=== PATIENT | female | born 1995 | race Caucasian/White ===

== ENCOUNTER 2018-06-29 13:44 | Emergency (ER) | payer OTHER, SELFPAY ==
[2018-06-29 13:57] VITALS: BP 124/82; PULSE 95; RESP 16; TEMP 36.2; O2SAT 99; BMI 22.7
--- NOTE | 2018-06-29 14:19 | ED_ITS ---
HPI - Head Injury <BART López - Last Filed: 06/29/18 21:31> General Chief complaint: Head Injury Stated complaint: hit head at work Time Seen by Provider: 06/29/18 14:18 Source: patient Mode of arrival: ambulatory Limitations: no limitations History of Present Illness HPI Narrative: 22-year-old female with history of prior stroke and is a nonsmoker here for complaint of hitting her head yesterday. She states that she was cleaning a large coffee pot when it fell and hit her on her forehead. She denies any loss of consciousness. She states that she was dizzy for approximately 15 min afterwards. She denies any nausea vomiting. She is currently on Plavix due to prior stroke history. She denies any neck pain. She denies any other concerns or complaints. She is ambulatory into the emergency room. She denies any neurological concerns no headache today, Related Data Allergies Allergy/AdvReac Type Severity Reaction Status Date / Time amoxicillin [AMOXICILLIN] Allergy Unknown Verified 06/29/18 13:57 clarithromycin [From BIAXIN] Allergy Unknown Verified 06/29/18 13:57 fentanyl [FENTANYL] Allergy Unknown Verified 06/29/18 13:57 Review of Systems <BART López - Last Filed: 06/29/18 21:31> Constitutional Denies chills, Denies fever(s), Denies lethargy and Denies weakness Eyes Denies change in vision, Denies eye discharge, Denies irritation and Denies loss of vision ENT Ears, Nose, Mouth, and Throat: Denies change in voice, Denies neck pain and Denies sore throat Cardiovascular Denies chest pain, Denies irregular heart rhythm, Denies lightheadedness, Denies palpitations, Denies dyspnea, Denies dyspnea on exertion and Denies orthopnea Respiratory Denies cough, Denies dyspnea, Denies dyspnea on exertion and Denies wheezing Gastrointestinal Gastrointestinal: Denies abdominal pain, Denies change in bowel habits, Denies diarrhea, Denies nausea and Denies vomiting Genitourinary Denies hematuria, Denies flank pain, Denies urinary incontinence and Denies urinary urgency Musculoskeletal Denies neck pain Integumentary/Breasts Denies pruritus, Denies erythema, Denies rash and Denies wounds Neurologic Denies confusion, Denies loss of vision and Denies weakness Comments: minor head injury Psychiatric Denies anxiety, Denies confusion, Denies depression, Denies homicidal ideation and Denies suicidal ideation Endocrine Denies palpitations Hematologic/Lymphatic Denies easy bruising Allergic/Immunologic Denies wheezing Exam <BART López - Last Filed: 06/29/18 21:31> Initial Vital Signs Initial Vital Signs: Vital Signs Temperature 97.2 F L 06/29/18 13:57 Pulse Rate 95 H 06/29/18 13:57 Respiratory Rate 16 06/29/18 13:57 Blood Pressure 124/82 06/29/18 13:57 Pulse Oximetry 99 06/29/18 13:57 Const General: cooperative and well developed Nutritional Appearance: well nourished Orientation: alert, awake, oriented x3 and not confused [facility] Head: normocephalic, No Elizondo's sign, contusion, No hematoma, No laceration, No palpable skull fracture, No raccoon eyes, No scalp tenderness and other ( slight contusion to the right forehead area. No hematomas. No step-offs. No raccoon eyes no Elizondo signs) Ears: external ears normal and TM's normal bilaterally Nose: external nose normal and No nasal discharge Face and sinus: sinuses nontender, face symmetric, no sinus tenderness and No dry mucous membranes Mouth: oral mucosae normal and moist mucous membranes Teeth and gingiva: dentition normal Throat: tonsils normal and uvula midline Eyes Conjunctivae: conjunctivae normal Sclera: sclerae normal Pupils: PERRL EOM: EOM intact bilaterally Resp Effort & Inspection: normal respiratory effort, able to speak in complete sentences, no respiratory distress and no use of accessory muscles Auscultation: clear to auscultation bilaterally, no rales, no rhonchi and no wheezes Cardio Rate: regular rate Rhythm: regular rhythm Heart Sounds: no click, no gallops, no murmurs and no rubs Pulses: normal peripheral pulses Skin General: no rashes or lesions noted, No jaundice and No petechiae Neuro General: alert, oriented x3, gait normal and no focal motor deficits Speech: speech normal <Shai Thrasher DO - Last Filed: 07/01/18 07:09> Initial Vital Signs Initial Vital Signs: Vital Signs Temperature 97.2 F L 06/29/18 13:57 Pulse Rate 95 H 06/29/18 13:57 Respiratory Rate 16 06/29/18 13:57 Blood Pressure 124/82 06/29/18 13:57 Pulse Oximetry 99 06/29/18 13:57 Course <BART López - Last Filed: 06/29/18 21:31> Orders Ordered: ED Orders 06/29/18 14:45 CT head/brain wo con Stat Vital Signs - 8 hr 06/29/18 13:57 06/29/18 15:51 Temperature 97.2 F L Pulse Rate 95 H 91 H Respiratory Rate 16 17 Blood Pressure 124/82 Blood Pressure [Left Arm] 116/76 Pulse Oximetry 99 96 <Shai Thrasher DO - Last Filed: 07/01/18 07:09> Orders Ordered: ED Orders 06/29/18 14:45 CT head/brain wo con Stat Vital Signs - 8 hr 06/29/18 13:57 06/29/18 15:51 Temperature 97.2 F L Pulse Rate 95 H 91 H Respiratory Rate 16 17 Blood Pressure 124/82 Blood Pressure [Left Arm] 116/76 Pulse Oximetry 99 96 MDM - Head Injury <BART López - Last Filed: 06/29/18 21:31> Imaging Data CT scan - head: Radiologist's impression: CT Scan Report Signed Patient: Winnie Carey [facility]#: [id number] : 1995Acct:[id number] Age/Sex: 22 / FDate of Service: 06/29/18 Loc: ED Accession Number: [id number] Procedure: CT head/brain wo con Ordering Provider: Bipin Matos PROCEDURE: CT HEAD/BRAIN WO CON INDICATIONS: head injury with history of taking Plavix TECHNIQUE: Noncontrast 4.5 mm thick angled axial sections acquired from the foramen magnum to the vertex, with coronal and sagittal reformats. For radiation dose reduction, the following was used: automated exposure control, adjustment of mA and/or kV according to patient size. COMPARISON: None. FINDINGS: Image quality: Excellent. CSF spaces: Basal cisterns are patent. No extra-axial fluid collections. Ventricles are normal in size and shape. Brain: Post surgical changes in right anterior middle cranial fossa is seen likely related to prior aneurysm repair.. Possible stent in the region of right distal internal carotid artery is also seen. No midline shift. No intracranial masses or hemorrhage. Quevedo-white matter interface is normal. Skull and face: Calvarium and visualized facial bones are intact, without suspicious lesions. Sinuses: Visualized sinuses and mastoids are clear. IMPRESSION: 1. No CT evidence of acute intracranial pathology. 2. Postsurgical changes in right middle cranial fossa and distal right internal carotid artery likely related patient's known intracranial vascular aneurysm. Dictated by: Donavon Pruitt M.D. on 06/29/2018 at 15:04 Approved by: Donavon Pruitt M.D. on 06/29/2018 at 15:07 [facility] Narrative Medical decision making narrative: with exception of small contusion to the right forehead area normal exam with no neurological deficits. CT of the head was obtained due to being on Plavix and was negative for any acute findings. Signs symptoms presents as minor head injury. [id number] Tylenol Motrin as needed for any discomfort. Follow up with primary care provider. Head injury instructions are provided with warning signs return to the emergency room. For any worsening symptoms return emergency room. Discharge Plan Departure Patient Disposition: Home Clinical Impression: Minor head injury without loss of consciousness Discharge Date/Time: 06/29/18 15:58 Interventions: ED Discharge Assessment Last Done: 06/29/18 15:57 Instructions: DI for Closed Head Injury Activity Restrictions/Additional Instructions: CT of the head was obtained was negative for any acute findings. With the exception of slight amount of bruising to the right forehead area normal exam And normal neurological exam. use [id number] Tylenol as needed for any discomfort. Follow up with her primary care provider. Head injury instructions are provided for signs return to the emergency room. Any worsening symptoms return emergency room. Referrals: Caty Kang DO [Primary Care Provider] - <Shai Thrasher DO - Last Filed: 07/01/18 07:09> Cosign ED Attending Dmitry Attestation: I was immediately available in the department for consultation. Documentation has been reviewed. I agree with assessment and plan.
--- NOTE | 2018-06-29 14:45 | DI.CT.S_ITS ---
PROCEDURE: CT HEAD/BRAIN WO CON INDICATIONS: head injury with history of taking Plavix TECHNIQUE: Noncontrast 4.5 mm thick angled axial sections acquired from the foramen magnum to the vertex, with coronal and sagittal reformats. For radiation dose reduction, the following was used: automated exposure control, adjustment of mA and/or kV according to patient size. COMPARISON: None. FINDINGS: Image quality: Excellent. CSF spaces: Basal cisterns are patent. No extra-axial fluid collections. Ventricles are normal in size and shape. Brain: Post surgical changes in right anterior middle cranial fossa is seen likely related to prior aneurysm repair.. Possible stent in the region of right distal internal carotid artery is also seen. No midline shift. No intracranial masses or hemorrhage. Quevedo-white matter interface is normal. Skull and face: Calvarium and visualized facial bones are intact, without suspicious lesions. Sinuses: Visualized sinuses and mastoids are clear. IMPRESSION: 1. No CT evidence of acute intracranial pathology. 2. Postsurgical changes in right middle cranial fossa and distal right internal carotid artery likely related patient's known intracranial vascular aneurysm. Dictated by: Donavon Pruitt M.D. on 06/29/2018 at 15:04 Approved by: Donavon Pruitt M.D. on 06/29/2018 at 15:07
[2018-06-29 15:51] VITALS: BP 116/76; PULSE 91; RESP 17; O2SAT 96
== END 2018-06-29 15:58 | disposition home or self-care (01) ==
PROVIDERS: Emergency Provider Nurse Practitioner Family; PCP Family Medicine
DX: S09.90XA Unspecified injury of head, initial encounter (principal); W22.8XXA Striking against or struck by other objects, initial encounter; Y99.0 Civilian activity done for income or pay
CPT/HCPCS: 70450; 99283; 99284

== ENCOUNTER 2018-11-20 11:21 | Emergency (ER) | payer OTHER, SELFPAY ==
[2018-11-20] VITALS (15 sets, daily range): BP systolic 94–136; BP diastolic 68–95; PULSE 87–98; RESP 14–30; TEMP 36.2; O2SAT 93–99; BMI 22.2
--- NOTE | 2018-11-20 11:28 | DI.RAD.S_ITS ---
PROCEDURE: XR CHEST 1V INDICATIONS: shortness of breath, chest tightness recent onset TECHNIQUE: One view of the chest was acquired. COMPARISON: None. FINDINGS: Surgical changes and devices: Postoperative changes of the chest are present related to prior median sternotomy.. Lungs and pleura: Lungs are clear. No pleural effusions or pneumothorax. Mediastinum: Mediastinal contours appear normal. Heart size is normal. Bones and chest wall: No suspicious bony lesions. Moderate dextroscoliosis of the thoracic spine is present. Overlying soft tissues appear unremarkable. IMPRESSION: No acute cardiopulmonary process is suspected. Dictated by: Enrico Chambers M.D. on 11/20/2018 at 10:50 Approved by: Enrico Chambers M.D. on 11/20/2018 at 10:51
--- NOTE | 2018-11-20 11:35 | ED_ITS ---
HPI - Chest Pain <Caty Burden RN ANTE PARTUM-BC - Last Filed: 11/20/18 21:45> General Chief Complaint: Chest Pain Stated Complaint: Chest tightness Time Seen by Provider: 11/20/18 11:25 Source: patient and EMS Mode of arrival: EMS Limitations: no limitations History of Present Illness HPI narrative: The patient is a 22-year-old female nonsmoker with history of brain aneurysm coiling earlier this week as well as tricuspid atresia who presents with a chief complaint of chest pressure, 2 episodes last night and 1 episode this morning. She states she is having exertional chest pressure when walking and feels like she cannot catch her breath. Of note she does have a history of TIA and stroke. She is on Plavix and aspirin. She denies any fevers nausea vomiting or diarrhea. She states that her pain is improved by rest. The patient states that she was seen at [facility] for a migraine and neurological symptoms yesterday. She complained of migraine with aura, numbness and tingling which went away. Now she is concerned about residual tingling and numbness on her face. She states she does have a history of stroke and TIA, and this feels similar. The patient has a history of congenital tricuspid atresia, Fontan procedure., ventral septal defect, supraventricular tachycardia. The patient was evaluated 2 days ago at an outside facility, where she was diagnosed with migraine. She states she was having a headache consistent with migraine and did not have a CT scan at that point in time. However she continues with some numbness on her face. Related Data Home Medications Medication Instructions Recorded Confirmed aspirin [Aspir-81] 81 mg PO DAILY 11/20/18 11/20/18 clopidogrel 75 mg PO DAILY 11/20/18 11/20/18 metoprolol succinate 50 mg PO BID 11/20/18 11/20/18 ondansetron 4 mg PO TID PRN 11/20/18 11/20/18 quetiapine 25 mg PO DAILY 11/20/18 11/20/18 riboflavin (vitamin B2) 200 mg PO BID 11/20/18 11/20/18 Allergies Allergy/AdvReac Type Severity Reaction Status Date / Time amoxicillin [AMOXICILLIN] Allergy Unknown Verified 11/20/18 12:03 clarithromycin [From BIAXIN] Allergy Unknown Verified 11/20/18 12:03 fentanyl [FENTANYL] Allergy Unknown Verified 11/20/18 12:03 Review of Systems <JOSE Bryant - Last Filed: 11/20/18 21:45> Review of Systems GENERAL: Denies chills, fatigue, malaise, fever, sweats. HEENT: Denies sinus pain, ear pain, sore throat, difficulty swallowing, dizziness. RESPIRATORY: Denies dyspnea, cough, wheezing, hemoptysis, sputum. CARDIOVASCULAR: See HPI GASTROINTESTINAL: Denies nausea, vomiting, abdominal pain, diarrhea, constipa tion, melena. : Denies dysuria, frequency, incontinence, hematuria, urinary retention. MUSCULOSKELETAL: denies weakness, joint pain, or bony pain SKIN: Denies rash, skin lesions, or other NEUROLOGIC: See HPI PSYCHIATRIC: No concerning psychosocial issues. 12 point review of systems is negative except for those stated above PFSH <JOSE Bryant - Last Filed: 11/20/18 21:45> Medical History (Updated 11/20/18 @ 21:39 by JOSE Bryant) Supraventricular tachycardia (Acute) Tricuspid atresia (Acute) Surgical History (Updated 11/20/18 @ 21:39 by JOSE Bryant) S/P Fontan procedure (Acute) Status post coil embolization of cerebral aneurysm (Acute) Social History Smoking Status: Never smoker Social History Smoking Status: Never smoker Exam <JOSE Bryant - Last Filed: 11/20/18 21:45> Narrative Exam Narrative: GENERAL: This is a well-nourished, well-developed patient appears anxious HEAD: Atraumatic. Normocephalic. No temporal or scalp tenderness. EYES: Pupils equal round and reactive. Extraocular motions intact. No scleral icterus. No injection or drainage. ENT: Nose without bleeding, purulent drainage or septal hematoma. Throat without erythema, tonsillar hypertrophy or exudate. Uvula midline. Airway patent. NECK: Trachea midline. No JVD or lymphadenopathy. Supple, nontender, no meningeal signs. CARDIOVASCULAR: Regular rate and rhythm RESPIRATORY: Clear to auscultation. Breath sounds equal bilaterally. No wheezes, rales, or rhonchi. No cough. No increased respiratory effort. GASTROINTESTINAL: Abdomen soft, non-tender, nondistended. No hepato- splenomegaly, or palpable masses. No guarding. EXTREMITIES: No clubbing, cyanosis, or edema. No joint tenderness, effusion, or edema noted. BACK: Nontender without deformity or crepitance. No flank tenderness. NEURO: AOx3. Strength is equal upper and lower extremities bilaterally. Stable gait. No slurred speech. Cranial nerves grossly intact. SKIN: No rash or erythema. Initial Vital Signs Initial Vital Signs: Vital Signs Temperature 97.2 F L 11/20/18 11:25 Pulse Rate 91 H 11/20/18 11:25 Respiratory Rate 18 11/20/18 11:25 Blood Pressure 135/92 H 11/20/18 11:25 Pulse Oximetry 97 11/20/18 11:25 <Sue Duke MD - Last Filed: 11/21/18 12:05> Initial Vital Signs Initial Vital Signs: Vital Signs Temperature 97.2 F L 11/20/18 11:25 Pulse Rate 91 H 11/20/18 11:25 Respiratory Rate 18 11/20/18 11:25 Blood Pressure 135/92 H 11/20/18 11:25 Pulse Oximetry 97 11/20/18 11:25 Course <JOSE Bryant - Last Filed: 11/20/18 21:45> Orders Ordered: Discontinued Medications Acetaminophen (Tylenol) 975 mg PO NOW ONE Stop: 11/20/18 13:09 Last Admin: 11/20/18 13:17 Dose: 975 mg Ketorolac Tromethamine (Toradol) 15 mg IV NOW ONE Stop: 11/20/18 13:09 Last Admin: 11/20/18 13:17 Dose: 15 mg Vital Signs - 8 hr 11/20/18 15:00 11/20/18 15:30 11/20/18 16:00 Pulse Rate 88 93 H 91 H Respiratory Rate 17 23 19 Blood Pressure [Right Arm] 108/76 97/82 108/68 Pulse Oximetry 98 97 97 11/20/18 17:30 11/20/18 18:00 11/20/18 18:30 Pulse Rate 94 H 92 H 92 H Respiratory Rate 21 21 19 Blood Pressure [Right Arm] 102/72 116/76 122/84 Pulse Oximetry 97 97 95 11/20/18 19:00 11/20/18 19:30 11/20/18 20:00 Pulse Rate 87 89 94 H Respiratory Rate 19 19 30 H Blood Pressure [Right Arm] 122/95 H 122/95 H Pulse Oximetry 96 95 93 <Sue Duke MD - Last Filed: 11/21/18 12:05> Orders Ordered: Discontinued Medications Acetaminophen (Tylenol) 975 mg PO NOW ONE Stop: 11/20/18 13:09 Last Admin: 11/20/18 13:17 Dose: 975 mg Ketorolac Tromethamine (Toradol) 15 mg IV NOW ONE Stop: 11/20/18 13:09 Last Admin: 11/20/18 13:17 Dose: 15 mg Vital Signs - 8 hr 11/20/18 15:00 11/20/18 15:30 11/20/18 16:00 Pulse Rate 88 93 H 91 H Respiratory Rate 17 23 19 Blood Pressure [Right Arm] 108/76 97/82 108/68 Pulse Oximetry 98 97 97 11/20/18 17:30 11/20/18 18:00 11/20/18 18:30 Pulse Rate 94 H 92 H 92 H Respiratory Rate 21 21 19 Blood Pressure [Right Arm] 102/72 116/76 122/84 Pulse Oximetry 97 97 95 11/20/18 19:00 11/20/18 19:30 11/20/18 20:00 Pulse Rate 87 89 94 H Respiratory Rate 19 19 30 H Blood Pressure [Right Arm] 122/95 H 122/95 H Pulse Oximetry 96 95 93 MDM - Chest Pain <JOSE Bryant - Last Filed: 11/20/18 21:45> Lab Data Result diagrams: 11/20/18 11:15 11/20/18 11:15 Lab Results 11/20/18 11/20/18 11/20/18 Range/Units 11:15 11:15 11:15 WBC 11.1 H (4.5-11.0) X10^3/uL RBC 4.95 (4.0-5.2) X10^6/uL Hgb 15.3 (12.0-16.0) g/dL Hct 45.0 (36-46) % MCV 90.8 (80-100) fL MCH 30.8 (26-34) PG MCHC 34.0 (30-36) % RDW 12.8 (11.6-14.8) % Plt Count 376 (150-400) X10^3/uL Neut % (Auto) 46.9 L (50-75) % Lymph % (Auto) 39.5 (25-40) % [place] % (Auto) 9.5 (3-14) % Eos % (Auto) 3.5 (2-4) % Baso % (Auto) 0.6 (0-2) % Neut # (Auto) 5200 (8357-6710) /uL Lymph # (Auto) 4400 (8005-0186) /uL [place] # (Auto) 1100 H (0-900) /uL Eos # (Auto) 400 (0-450) /uL Baso # (Auto) 100 (0-100) /uL PT 12.3 (10.1-12.7) SECONDS INR 1.1 (0.9-1.3) APTT 33 (26.4-36.2) SECONDS D-Dimer (<230) ng/mL Sodium 141 (137-145) mmol/L Potassium 4.1 (3.4-5.1) mmol/L Chloride 105 (98-107) mmol/L Carbon Dioxide 21 L (22-32) mmol/L BUN 15 (7-17) mg/dL Creatinine 0.70 (0.52-1.04) mg/dL Estimated GFR > 60.0 (>60) mL/min BUN/Creatinine Ratio 21.4 (6-22) Glucose 85 (70-100) mg/dL Calcium 10.2 (8.4-10.2) mg/dL Total Bilirubin 0.6 (0.2-1.3) mg/dL AST 54 H (14-36) IU/L ALT 67 H (9-52) IU/L Alkaline Phosphatase 75 (38-126) U/L Total Creatine Kinase 26 L (30-135) U/L CK-MB (CK-2) TNP CK-MB (CK-2) Rel Index TNP Troponin I < 0.012 (0.01-0.034) ng/mL B-Natriuretic Peptide < 100 (<100) Total Protein 9.0 H (6.3-8.2) g/dL Albumin 4.9 (3.5-5.0) g/dL Globulin 4.1 (1.7-4.1) g/dL Albumin/Globulin Ratio 1.2 (1.0-2.8) Urine RBC (0-5/HPF) Urine WBC (0-5/HPF) Ur Squamous Epith Cells (0-5/HPF) Urine Bacteria (None) Ur Culture Indicated? 11/20/18 11/20/18 11/20/18 Range/Units 11:15 12:08 14:00 WBC (4.5-11.0) X10^3/uL RBC (4.0-5.2) X10^6/uL Hgb (12.0-16.0) g/dL Hct (36-46) % MCV (80-100) fL MCH (26-34) PG MCHC (30-36) % RDW (11.6-14.8) % Plt Count (150-400) X10^3/uL Neut % (Auto) (50-75) % Lymph % (Auto) (25-40) % [place] % (Auto) (3-14) % Eos % (Auto) (2-4) % Baso % (Auto) (0-2) % Neut # (Auto) (0120-8933) /uL Lymph # (Auto) (5700-8920) /uL [place] # (Auto) (0-900) /uL Eos # (Auto) (0-450) /uL Baso # (Auto) (0-100) /uL PT (10.1-12.7) SECONDS INR (0.9-1.3) APTT (26.4-36.2) SECONDS D-Dimer 350 H (<230) ng/mL Sodium (137-145) mmol/L Potassium (3.4-5.1) mmol/L Chloride (98-107) mmol/L Carbon Dioxide (22-32) mmol/L BUN (7-17) mg/dL Creatinine (0.52-1.04) mg/dL Estimated GFR (>60) mL/min BUN/Creatinine Ratio (6-22) Glucose (70-100) mg/dL Calcium (8.4-10.2) mg/dL Total Bilirubin (0.2-1.3) mg/dL AST (14-36) IU/L ALT (9-52) IU/L Alkaline Phosphatase (38-126) U/L Total Creatine Kinase 25 L (30-135) U/L CK-MB (CK-2) TNP CK-MB (CK-2) Rel Index TNP Troponin I < 0.012 (0.01-0.034) ng/mL B-Natriuretic Peptide (<100) Total Protein (6.3-8.2) g/dL Albumin (3.5-5.0) g/dL Globulin (1.7-4.1) g/dL Albumin/Globulin Ratio (1.0-2.8) Urine RBC None seen (0-5/HPF) Urine WBC None seen (0-5/HPF) Ur Squamous Epith Cells 1-5 /hpf (0-5/HPF) Urine Bacteria Few (2-10) H (None) Ur Culture Indicated? Cult not indicated 11/20/18 Range/Units 19:34 WBC (4.5-11.0) X10^3/uL RBC (4.0-5.2) X10^6/uL Hgb (12.0-16.0) g/dL Hct (36-46) % MCV (80-100) fL MCH (26-34) PG MCHC (30-36) % RDW (11.6-14.8) % Plt Count (150-400) X10^3/uL Neut % (Auto) (50-75) % Lymph % (Auto) (25-40) % [place] % (Auto) (3-14) % Eos % (Auto) (2-4) % Baso % (Auto) (0-2) % Neut # (Auto) (9707-7335) /uL Lymph # (Auto) (0894-2017) /uL [place] # (Auto) (0-900) /uL Eos # (Auto) (0-450) /uL Baso # (Auto) (0-100) /uL PT (10.1-12.7) SECONDS INR (0.9-1.3) APTT (26.4-36.2) SECONDS D-Dimer (<230) ng/mL Sodium (137-145) mmol/L Potassium (3.4-5.1) mmol/L Chloride (98-107) mmol/L Carbon Dioxide (22-32) mmol/L BUN (7-17) mg/dL Creatinine (0.52-1.04) mg/dL Estimated GFR (>60) mL/min BUN/Creatinine Ratio (6-22) Glucose (70-100) mg/dL Calcium (8.4-10.2) mg/dL Total Bilirubin (0.2-1.3) mg/dL AST (14-36) IU/L ALT (9-52) IU/L Alkaline Phosphatase (38-126) U/L Total Creatine Kinase 28 L (30-135) U/L CK-MB (CK-2) TNP CK-MB (CK-2) Rel Index TNP Troponin I < 0.012 (0.01-0.034) ng/mL B-Natriuretic Peptide (<100) Total Protein (6.3-8.2) g/dL Albumin (3.5-5.0) g/dL Globulin (1.7-4.1) g/dL Albumin/Globulin Ratio (1.0-2.8) Urine RBC (0-5/HPF) Urine WBC (0-5/HPF) Ur Squamous Epith Cells (0-5/HPF) Urine Bacteria (None) Ur Culture Indicated? Point of Care Testing Test Results Negative Urine Dip Bedside Urine Glucose Negative Bedside Urine Bilirubin - Negative Bedside Urine Ketone - Negative Urine Specific [place] 1.015 Bedside Urine Occult Blood + Bedside Urine pH 6.0 Bedside Urine Protein - Negative Bedside Urine Urobilinogen - Negative Bedside Urine Nitrite - Negative Bedside Urine Leukocytes - Negative Esterase Imaging Data Chest x-ray: Radiologist's impression: [address] [address] XRay Report Signed Patient: Winnie Carey [facility]#: [id number] : 1995Acct:[id number] Age/Sex: 22 / FDate of Service: 11/20/18 Loc: ED Accession Number: [id number] Procedure: XR chest 1V Ordering Provider: Caty Burden-PAYTON PROCEDURE: XR CHEST 1V INDICATIONS: shortness of breath, chest tightness recent onset TECHNIQUE: One view of the chest was acquired. COMPARISON: None. FINDINGS: Surgical changes and devices: Postoperative changes of the chest are present related to prior median sternotomy.. Lungs and pleura: Lungs are clear. No pleural effusions or pneumothorax. Mediastinum: Mediastinal contours appear normal. Heart size is normal. Bones and chest wall: No suspicious bony lesions. Moderate dextroscoliosis of the thoracic spine is present. Overlying soft tissues appear unremarkable. IMPRESSION: No acute cardiopulmonary process is suspected. Venous US: Radiologist's impression: [address] [address] Ultrasound Report Signed Patient: Winnie Carey [facility]#: [id number] : 1995Acct:[id number] Age/Sex: 22 / FDate of Service: 11/20/18 Loc: ED Accession Number: [id number] Procedure: US periph venous low extrem bi Ordering Provider: Caty Burden PROCEDURE: US PERIPH VENOUS LOW EXTREM BI INDICATIONS: SOB TECHNIQUE: Real-time imaging, as well as color and pulse Doppler interrogation, were performed of the deep veins of both legs from the inguinal ligament to the popliteal fossa. COMPARISON: None. FINDINGS: Right: The common femoral, femoral and popliteal veins are normally compressible, and free of intraluminal thrombus. Color and pulse Doppler demonstrate normal phasic intravascular flow. There is normal augmentation response to distal compression maneuver. Left: The common femoral, femoral and popliteal veins are normally compressible, and free of intraluminal thrombus. Color and pulse Doppler demonstrate normal phasic intravascular flow. There is normal augmentation response to distal compression maneuver. IMPRESSION: 1. No evidence of deep venous thrombosis in the right or left lower extremity. Dictated by: Kevin Alex M.D. on 11/20/2018 at 14:16 Approved by: Kevin Alex M.D. on 11/20/2018 at 14:19 chest CTA: Radiologist's impression: [address] [address] [address] Scan Report Signed Patient: Winnie Carey [facility]#: [id number] : 1995Acct:[id number] Age/Sex: 22 / FDate of Service: 11/20/18 Loc: ED Accession Number: [id number] Procedure: CT angio chest PE protocol Ordering Provider: Caty Burden-PAYTON PROCEDURE: CT ANGIO CHEST PE PROTOCOL INDICATIONS: sob, cp, recent surg TECHNIQUE: After the administration of intravenous contrast, 2 mm thick sections acquired from the pulmonary apices to the posterior costophrenic angles. 3-dimensional maximum intensity projection (MIP) coronal and sagittal reformats were then acquired through the thorax. For radiation dose reduction, the following was used: automated exposure control, adjustment of mA and/or kV according to patient size. COMPARISON: None. FINDINGS: Image quality: Nondiagnostic examination secondary to congenital heart disease and Fontan procedure, which results in heterogeneous incomplete opacification of the pulmonary arteries. No acute consolidation seen. No pleural effusion or pneumothorax. There is chronic skeletal deformity. Hypoplastic appearance of the right heart. The left ventricle appears enlarged. There is contrast opacification of the right pulmonary arteries from the SVC secondary to Fontan procedure however incomplete filling. This precludes accur ate evaluation for pulmonary embolism. There is also unopacified left pulmonary arteries, due to surgical connection of the left pulmonary vasculature to the IVC. There is no definite intimal flap seen within the aorta to suggest dissection. No aortic aneurysm identified. Visualized carotid vasculature appears grossly patent. Bones and chest wall: No suspicious bony lesions. Ribs and thoracic spine appear intact throughout. Thyroid gland unremarkable. No axillary or supraclavicular a denopathy. Abdomen: Visualized upper abdominal solid organs appear normal in the early arterial phase of enhancement. IMPRESSION: Nondiagnostic examination secondary to congenital heart disease and postsurgical changes as described above. As clinically warranted, alternative risk stratification could be performed with bilateral lower extremity ultrasound to assess for deep venous thrombosis. Of note, because of surgical changes, V/Q scan would be nondiagnostic as well. Findings personally telephoned and discussed with Caty ROSA in the emergency department on 11/20/18 1321 hrs. Dictated by: Jamal Amos M.D. on 11/20/2018 at 13:10 Approved by: Jamal Amos M.D. on 11/20/2018 at 13:[address]: Radiologist's impression: [address] [address] [address] Scan Report Signed Patient: Winnie Carey#: [id number] : 1995Acct:[id number] Age/Sex: 22 / FDate of Service: 11/20/18 Loc: ED Accession Number: [id number] Procedure: CT angio head and neck Ordering Provider: Caty Burden- PROCEDURE: CT ANGIO HEAD AND NECK INDICATIONS: recent coiling r ica aneurysm, facial numbness TECHNIQUE: Pre-contrast 4.5 mm thick sections acquired from the foramen magnum to the vertex. After the administration of intravenous contrast, 1 mm thick sections acquired from the aortic arch through the [place] of [place]. Post-contrast 4.5 mm thick sections then re- acquired from the foramen magnum to the vertex. 3-dimensional luejpgk-lojjorquo-zutjuqqacx (MIP) and/or volume rendering reformats were acquired of the central intracranial vasculature and neck separately. COMPARISON: [facility], CT, CT HEAD/BRAIN WO CON, 06/29/2018, 14:41. FINDINGS: Image quality: Limited by streak artifact. The intracranial portion of the study is limited by venous contamination. BRAIN: CSF spaces: Ventricles are normal in size and shape. Basal cisterns are patent. No extra-axial fluid collections. Brain: No midline shift. No intracranial bleeds or masses. [place]-white matter interface appears intact. Skull and face: Calvarium and facial bones appear intact, without suspicious l esions. Orbits appear normal. Sinuses: Sinuses and mastoids are clear. HEAD CT ANGIOGRAPHY: Anterior circulation: There is a prominent group of coils seen within the right intracranial internal carotid artery, at the level of the cavernous sinus, with prominent streak artifact. The flow within the paired anterior cerebral arteries is normal and symmetric. The flow within the middle cerebral arteries is normal and symmetric. The anterior communicating artery is seen. No aneurysms are seen. Posterior circulation: There is a hypertrophied artery seen on the right side, which appears to connect between the distal intracranial carotid artery and the right posterior communicating artery. This accessory artery swings towards the midline and demonstrates irregular. No definite additional aneurysms can be seen, although there is prominent tortuosity seen within this vessel. Visualized portions of the vertebral arteries demonstrate normal caliber, and join to form a normal appearing basilar artery. Flow within the posterior cerebral arteries is normal and symmetric. No aneurysms are seen. NECK CT ANGIOGRAPHY: Carotid system: The great vessels demonstrate a conventional anatomy as they arise from the aortic arch. The origins of the common carotid arteries appear patent. The common carotid arteries demonstrate normal caliber and courses. The bifurcation regions are both widely patent. The internal carotid arteries demonstrate normal calibers. The internal carotid arteries are highly tortuous. Posterior circulation: The origins of the vertebral arteries both appear widely patent. The more superior extracranial portions of both vertebral arteries also demonstrate normal courses and calibers. They join to form a normal appearing basilar artery. Soft tissues: Visualized neck soft tissues demonstrate no suspicious abnormalities. Bones: No suspicious bony lesions. Visualized cervical spine appears normally aligned. There is reversal of the normal cervical lordosis. 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 There is prominent streak artifact. There is a hypertrophied artery seen at the level of [place] of [place] on the right side, which appears to connect between the distal intracranial internal carotid artery and the posterior communicating artery. This vessel is partially obscured by streak artifact. 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 No angeilca CT findings of early stroke can be seen, to the limits of this study. Any quantitative measurements of stenosis were performed using NASCET criteria. Dictated by: Reilly Avila M.D. on 11/20/2018 at 12:04 Approved by: Reilly Avila M.D. on 11/20/2018 at 12:23 ECG Data Attestation: I personally reviewed and interpreted this ECG as follows: Interpretation: Sinus rhythm. Ventricular rate 94. ST depression noted V3. No ectopy noted. [facility] Narrative Medical decision making narrative: The patient is a 22-year-old female with a very complicated medical history presents to this emergency department with chief complaint of substernal chest pain. given her recent procedure, history of clots and shortness of breath with chest pain I was concerned about a PE. However her previous surgical history makes it difficult to diagnose PE, but bilateral venous ultrasounds on her lower extremities were negative. given her recurrent neurological complaints, I did obtain a CT head and neck, which was normal. she had 2 negative troponins. Given the patient's complicated medical history, I contacted [facility] cardiology and spoke with Dr Miller who reviewed the patient's imaging, went over the EKG, and accepted the patient for transfer given her complicated cardiac history and continued chest pain. the patient felt improved after Toradol, and managed to get some sleep while waiting for transportation. She had third negative troponin. The patient did complain of some headache and migraine symptoms including or after her IV contrast, which she states happens with her IV contrast. She was hemodynamically stable throughout stay in the emergency department, maintaining her rate in the 90s and hemodynamically stable with her at her bedside. Patient stated understanding of transfer and had no questions or concerns. <Sue Duke MD - Last Filed: 11/21/18 12:05> Lab Data Lab Results 11/20/18 11/20/18 11/20/18 Range/Units 11:15 11:15 11:15 WBC 11.1 H (4.5-11.0) X10^3/uL RBC 4.95 (4.0-5.2) X10^6/uL Hgb 15.3 (12.0-16.0) g/dL Hct 45.0 (36-46) % MCV 90.8 (80-100) fL MCH 30.8 (26-34) PG MCHC 34.0 (30-36) % RDW 12.8 (11.6-14.8) % Plt Count 376 (150-400) X10^3/uL Neut % (Auto) 46.9 L (50-75) % Lymph % (Auto) 39.5 (25-40) % [place] % (Auto) 9.5 (3-14) % Eos % (Auto) 3.5 (2-4) % Baso % (Auto) 0.6 (0-2) % Neut # (Auto) 5200 (9374-4327) /uL Lymph # (Auto) 4400 (1736-4900) /uL [place] # (Auto) 1100 H (0-900) /uL Eos # (Auto) 400 (0-450) /uL Baso # (Auto) 100 (0-100) /uL PT 12.3 (10.1-12.7) SECONDS INR 1.1 (0.9-1.3) APTT 33 (26.4-36.2) SECONDS D-Dimer (<230) ng/mL Sodium 141 (137-145) mmol/L Potassium 4.1 (3.4-5.1) mmol/L Chloride 105 (98-107) mmol/L Carbon Dioxide 21 L (22-32) mmol/L BUN 15 (7-17) mg/dL Creatinine 0.70 (0.52-1.04) mg/dL Estimated GFR > 60.0 (>60) mL/min BUN/Creatinine Ratio 21.4 (6-22) Glucose 85 (70-100) mg/dL Calcium 10.2 (8.4-10.2) mg/dL Total Bilirubin 0.6 (0.2-1.3) mg/dL AST 54 H (14-36) IU/L ALT 67 H (9-52) IU/L Alkaline Phosphatase 75 (38-126) U/L Total Creatine Kinase 26 L (30-135) U/L CK-MB (CK-2) TNP CK-MB (CK-2) Rel Index TNP Troponin I < 0.012 (0.01-0.034) ng/mL B-Natriuretic Peptide < 100 (<100) Total Protein 9.0 H (6.3-8.2) g/dL Albumin 4.9 (3.5-5.0) g/dL Globulin 4.1 (1.7-4.1) g/dL Albumin/Globulin Ratio 1.2 (1.0-2.8) Urine RBC (0-5/HPF) Urine WBC (0-5/HPF) Ur Squamous Epith Cells (0-5/HPF) Urine Bacteria (None) Ur Culture Indicated? 11/20/18 11/20/18 11/20/18 Range/Units 11:15 12:08 14:00 WBC (4.5-11.0) X10^3/uL RBC (4.0-5.2) X10^6/uL Hgb (12.0-16.0) g/dL Hct (36-46) % MCV (80-100) fL MCH (26-34) PG MCHC (30-36) % RDW (11.6-14.8) % Plt Count (150-400) X10^3/uL Neut % (Auto) (50-75) % Lymph % (Auto) (25-40) % [place] % (Auto) (3-14) % Eos % (Auto) (2-4) % Baso % (Auto) (0-2) % Neut # (Auto) (5009-5245) /uL Lymph # (Auto) (2010-7068) /uL [place] # (Auto) (0-900) /uL Eos # (Auto) (0-450) /uL Baso # (Auto) (0-100) /uL PT (10.1-12.7) SECONDS INR (0.9-1.3) APTT (26.4-36.2) SECONDS D-Dimer 350 H (<230) ng/mL Sodium (137-145) mmol/L Potassium (3.4-5.1) mmol/L Chloride (98-107) mmol/L Carbon Dioxide (22-32) mmol/L BUN (7-17) mg/dL Creatinine (0.52-1.04) mg/dL Estimated GFR (>60) mL/min BUN/Creatinine Ratio (6-22) Glucose (70-100) mg/dL Calcium (8.4-10.2) mg/dL Total Bilirubin (0.2-1.3) mg/dL AST (14-36) IU/L ALT (9-52) IU/L Alkaline Phosphatase (38-126) U/L Total Creatine Kinase 25 L (30-135) U/L CK-MB (CK-2) TNP CK-MB (CK-2) Rel Index TNP Troponin I < 0.012 (0.01-0.034) ng/mL B-Natriuretic Peptide (<100) Total Protein (6.3-8.2) g/dL Albumin (3.5-5.0) g/dL Globulin (1.7-4.1) g/dL Albumin/Globulin Ratio (1.0-2.8) Urine RBC None seen (0-5/HPF) Urine WBC None seen (0-5/HPF) Ur Squamous Epith Cells 1-5 /hpf (0-5/HPF) Urine Bacteria Few (2-10) H (None) Ur Culture Indicated? Cult not indicated 11/20/18 Range/Units 19:34 WBC (4.5-11.0) X10^3/uL RBC (4.0-5.2) X10^6/uL Hgb (12.0-16.0) g/dL Hct (36-46) % MCV (80-100) fL MCH (26-34) PG MCHC (30-36) % RDW (11.6-14.8) % Plt Count (150-400) X10^3/uL Neut % (Auto) (50-75) % Lymph % (Auto) (25-40) % [place] % (Auto) (3-14) % Eos % (Auto) (2-4) % Baso % (Auto) (0-2) % Neut # (Auto) (2445-7851) /uL Lymph # (Auto) (1793-4952) /uL [place] # (Auto) (0-900) /uL Eos # (Auto) (0-450) /uL Baso # (Auto) (0-100) /uL PT (10.1-12.7) SECONDS INR (0.9-1.3) APTT (26.4-36.2) SECONDS D-Dimer (<230) ng/mL Sodium (137-145) mmol/L Potassium (3.4-5.1) mmol/L Chloride (98-107) mmol/L Carbon Dioxide (22-32) mmol/L BUN (7-17) mg/dL Creatinine (0.52-1.04) mg/dL Estimated GFR (>60) mL/min BUN/Creatinine Ratio (6-22) Glucose (70-100) mg/dL Calcium (8.4-10.2) mg/dL Total Bilirubin (0.2-1.3) mg/dL AST (14-36) IU/L ALT (9-52) IU/L Alkaline Phosphatase (38-126) U/L Total Creatine Kinase 28 L (30-135) U/L CK-MB (CK-2) TNP CK-MB (CK-2) Rel Index TNP Troponin I < 0.012 (0.01-0.034) ng/mL B-Natriuretic Peptide (<100) Total Protein (6.3-8.2) g/dL Albumin (3.5-5.0) g/dL Globulin (1.7-4.1) g/dL Albumin/Globulin Ratio (1.0-2.8) Urine RBC (0-5/HPF) Urine WBC (0-5/HPF) Ur Squamous Epith Cells (0-5/HPF) Urine Bacteria (None) Ur Culture Indicated? Point of Care Testing Test Results Negative Urine Dip Bedside Urine Glucose Negative Bedside Urine Bilirubin - Negative Bedside Urine Ketone - Negative Urine Specific [place] 1.015 Bedside Urine Occult Blood + Bedside Urine pH 6.0 Bedside Urine Protein - Negative Bedside Urine Urobilinogen - Negative Bedside Urine Nitrite - Negative Bedside Urine Leukocytes - Negative Esterase Discharge Plan Departure Patient Disposition: [facility] Clinical Impression: Chest pain Qualifiers: Chest pain type: unspecified Qualified Code(s): R07.9 - Chest pain, unspecified Discharge Date/Time: 11/20/18 20:50 Interventions: ED Discharge Assessment Last Done: 11/20/18 21:26 Prescriptions: No Action quetiapine 25 mg tablet 25 mg PO DAILY RF: 0 metoprolol succinate 50 mg tablet extended release 24 hr 50 mg PO BID RF: 0 clopidogrel 75 mg tablet 75 mg PO DAILY RF: 0 ondansetron 4 mg tablet,disintegrating 4 mg PO TID PRN (Reason: Nausea) RF: 0 aspirin [Aspir-81] 81 mg Tablet,Delayed Release (Dr/Ec) 81 mg PO DAILY RF: 0 riboflavin (vitamin B2) 200 mg PO BID RF: 0 Referrals: Caty Kang DO [Primary Care Provider] -
[2018-11-20 11:39] LABS: INR 1.1 (0.9-1.3); Prothrombin Time 12.3 SECONDS (10.1-12.7)
[2018-11-20 11:41] LABS: PTT Partial Thromboplastin Tim 33 SECONDS (26.4-36.2)
[2018-11-20 11:44] LABS: Alanine Aminotransferase 67 IU/L (9-52); Albumin 4.9 g/dL (3.5-5.0); Albumin Globulin Ratio 1.2 (1.0-2.8); Alkaline Phosphatase 75 U/L (38-126); Aspartate Aminotransferase 54 IU/L (14-36); BUN Creatinine Ratio 21.4 (6-22); Bilirubin Total 0.6 mg/dL (0.2-1.3); Blood Urea Nitrogen 15 mg/dL (7-17); Calcium 10.2 mg/dL (8.4-10.2); Carbon Dioxide 21 mmol/L (22-32); Chloride 105 mmol/L (98-107); Creatine Kinase 26 U/L (30-135); Estimated Glomerular Filt Rate > 60.0 mL/min (>60); Globulin 4.1 g/dL (1.7-4.1); Glucose 85 mg/dL (70-100); HEMOLYSIS 20 (0-50); Potassium 4.1 mmol/L (3.4-5.1); Sodium 141 mmol/L (137-145)
[2018-11-20 11:46] LABS: Add Manual Diff / Slide Review NO; Basophils Absolute Auto 100 /uL (0-100); Basophils Percent Auto 0.6 % (0-2); Eosinophils Absolute Auto 400 /uL (0-450); Eosinophils Percent Auto 3.5 % (2-4); Hemoglobin 15.3 g/dL (12.0-16.0); Lymphocytes Absolute Auto 4400 /uL (1100-4500); Lymphocytes Percent Auto 39.5 % (25-40); Mean Corpuscular Hemoglobin 30.8 PG (26-34); Mean Corpuscular Volume 90.8 fL (80-100); Monocytes Absolute Auto 1100 /uL (0-900); Monocytes Percent Auto 9.5 % (3-14); Neutrophils Absolute Auto 5200 /uL (1500-7000); Neutrophils Percent Auto 46.9 % (50-75); Platelet Count 376 X10^3/uL (150-400); Red Blood Cell Count 4.95 X10^6/uL (4.0-5.2); Red Cell Distribution Width 12.8 % (11.6-14.8); White Blood Cell Count 11.1 X10^3/uL (4.5-11.0)
[2018-11-20 11:56] LABS: Troponin I < 0.012 ng/mL (0.01-0.034)
[2018-11-20 11:57] LABS: B Type Natriuretic Peptide < 100 (<100)
--- NOTE | 2018-11-20 12:04 | DI.CT.S_ITS ---
PROCEDURE: CT ANGIO CHEST PE PROTOCOL INDICATIONS: sob, cp, recent surg TECHNIQUE: After the administration of intravenous contrast, 2 mm thick sections acquired from the pulmonary apices to the posterior costophrenic angles. 3-dimensional maximum intensity projection (MIP) coronal and sagittal reformats were then acquired through the thorax. For radiation dose reduction, the following was used: automated exposure control, adjustment of mA and/or kV according to patient size. COMPARISON: None. FINDINGS: Image quality: Nondiagnostic examination secondary to congenital heart disease and Fontan procedure, which results in heterogeneous incomplete opacification of the pulmonary arteries. No acute consolidation seen. No pleural effusion or pneumothorax. There is chronic skeletal deformity. Hypoplastic appearance of the right heart. The left ventricle appears enlarged. There is contrast opacification of the right pulmonary arteries from the SVC secondary to Fontan procedure however incomplete filling. This precludes accurate evaluation for pulmonary embolism. There is also unopacified left pulmonary arteries, due to surgical connection of the left pulmonary vasculature to the IVC. There is no definite intimal flap seen within the aorta to suggest dissection. No aortic aneurysm identified. Visualized carotid vasculature appears grossly patent. Bones and chest wall: No suspicious bony lesions. Ribs and thoracic spine appear intact throughout. Thyroid gland unremarkable. No axillary or supraclavicular adenopathy. Abdomen: Visualized upper abdominal solid organs appear normal in the early arterial phase of enhancement. IMPRESSION: Nondiagnostic examination secondary to congenital heart disease and postsurgical changes as described above. As clinically warranted, alternative risk stratification could be performed with bilateral lower extremity ultrasound to assess for deep venous thrombosis. Of note, because of surgical changes, V/Q scan would be nondiagnostic as well. Findings personally telephoned and discussed with Caty ROSA in the emergency department on 11/20/18 1321 hrs. Dictated by: Jamal Amos M.D. on 11/20/2018 at 13:10 Approved by: Jamal Amos M.D. on 11/20/2018 at 13:25
--- NOTE | 2018-11-20 12:04 | DI.CT.S_ITS ---
PROCEDURE: CT ANGIO HEAD AND NECK INDICATIONS: recent coiling r ica aneurysm, facial numbness TECHNIQUE: Pre-contrast 4.5 mm thick sections acquired from the foramen magnum to the vertex. After the administration of intravenous contrast, 1 mm thick sections acquired from the aortic arch through the [place]. Post-contrast 4.5 mm thick sections then re-acquired from the foramen magnum to the vertex. 3-dimensional fnlmwci-yjyeoalsu-spqukgepqy (MIP) and/or volume rendering reformats were acquired of the central intracranial vasculature and neck separately. COMPARISON: [facility], CT, CT HEAD/BRAIN WO CON, 06/29/2018, 14:41. FINDINGS: Image quality: Limited by streak artifact. The intracranial portion of the study is limited by venous contamination. BRAIN: CSF spaces: Ventricles are normal in size and shape. Basal cisterns are patent. No extra-axial fluid collections. Brain: No midline shift. No intracranial bleeds or masses. [place]-white matter interface appears intact. Skull and face: Calvarium and facial bones appear intact, without suspicious lesions. Orbits appear normal. Sinuses: Sinuses and mastoids are clear. HEAD CT ANGIOGRAPHY: Anterior circulation: There is a prominent group of coils seen within the right intracranial internal carotid artery, at the level of the cavernous sinus, with prominent streak artifact. The flow within the paired anterior cerebral arteries is normal and symmetric. The flow within the middle cerebral arteries is normal and symmetric. The anterior communicating artery is seen. No aneurysms are seen. Posterior circulation: There is a hypertrophied artery seen on the right side, which appears to connect between the distal intracranial carotid artery and the right posterior communicating artery. This accessory artery swings towards the midline and demonstrates irregular. No definite additional aneurysms can be seen, although there is prominent tortuosity seen within this vessel. Visualized portions of the vertebral arteries demonstrate normal caliber, and join to form a normal appearing basilar artery. Flow within the posterior cerebral arteries is normal and symmetric. No aneurysms are seen. NECK CT ANGIOGRAPHY: Carotid system: The great vessels demonstrate a conventional anatomy as they arise from the aortic arch. The origins of the common carotid arteries appear patent. The common carotid arteries demonstrate normal caliber and courses. The bifurcation regions are both widely patent. The internal carotid arteries demonstrate normal calibers. The internal carotid arteries are highly tortuous. Posterior circulation: The origins of the vertebral arteries both appear widely patent. The more superior extracranial portions of both vertebral arteries also demonstrate normal courses and calibers. They join to form a normal appearing basilar artery. Soft tissues: Visualized neck soft tissues demonstrate no suspicious abnormalities. Bones: No suspicious bony lesions. Visualized cervical spine appears normally aligned. There is reversal of the normal cervical lordosis. 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 There is prominent streak artifact. There is a hypertrophied artery seen at the level of [place] on the right side, which appears to connect between the distal intracranial internal carotid artery and the posterior communicating artery. This vessel is partially obscured by streak artifact. 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 No angelica CT findings of early stroke can be seen, to the limits of this study. Any quantitative measurements of stenosis were performed using NASCET criteria. Dictated by: Reilly Avila M.D. on 11/20/2018 at 12:04 Approved by: Reilly Avila M.D. on 11/20/2018 at 12:23
--- NOTE | 2018-11-20 12:13 | PC.NURSE ---
pt reports she has been having intermittent tingling on the left side of her face. started again while in ER, BART Byrne aware.
[2018-11-20 12:18] LABS: RBC Urine None Seen (0-5/HPF); WBC Urine None Seen (0-5/HPF)
[2018-11-20 12:29] LABS: Bacteria Urine Few (2-10); Culture Indicated Urine Cult Not Indicated; Squamous Epithelial Cell Urine 1-5 /HPF (0-5/HPF)
[2018-11-20] MEDS: ACETAMINOPHEN 325 MG TABLET 975 MG PO (13:17)
[2018-11-20] MEDS: KETOROLAC 60 MG/2 ML VIAL 15 MG IV (13:17)
--- NOTE | 2018-11-20 13:50 | DI.US.S_ITS ---
PROCEDURE: US PERIPH VENOUS LOW EXTREM BI INDICATIONS: SOB TECHNIQUE: Real-time imaging, as well as color and pulse Doppler interrogation, were performed of the deep veins of both legs from the inguinal ligament to the popliteal fossa. COMPARISON: None. FINDINGS: Right: The common femoral, femoral and popliteal veins are normally compressible, and free of intraluminal thrombus. Color and pulse Doppler demonstrate normal phasic intravascular flow. There is normal augmentation response to distal compression maneuver. Left: The common femoral, femoral and popliteal veins are normally compressible, and free of intraluminal thrombus. Color and pulse Doppler demonstrate normal phasic intravascular flow. There is normal augmentation response to distal compression maneuver. IMPRESSION: 1. No evidence of deep venous thrombosis in the right or left lower extremity. Dictated by: Kevin Alex M.D. on 11/20/2018 at 14:16 Approved by: Kevin Alex M.D. on 11/20/2018 at 14:19
[2018-11-20 14:20] LABS: Creatine Kinase 25 U/L (30-135)
[2018-11-20 14:32] LABS: Troponin I < 0.012 ng/mL (0.01-0.034)
[2018-11-20 16:15] LABS: D Dimer 350 ng/mL (<230)
[2018-11-20 19:52] LABS: Creatine Kinase 28 U/L (30-135)
[2018-11-20 20:05] LABS: Troponin I < 0.012 ng/mL (0.01-0.034)
== END 2018-11-20 20:50 | disposition short-term general hospital (02) ==
PROVIDERS: Emergency Provider Nurse Practitioner Family; PCP Family Medicine
DX: R07.9 Chest pain, unspecified (principal); R20.0 Anesthesia of skin; R06.02 Shortness of breath; R51 Headache; Z86.73 Personal history of transient ischemic attack (TIA), and cerebral infarction without residual deficits
CPT/HCPCS: 36415; 36591; 70496; 70498; 71045; 71275; 80053; 81003; 81015; 81025; 82550; 83880; 84484; 85025; 85379; 85610; 85730; 93005; 93041; 93970; 96374; 99285; 99291; J1885

== ENCOUNTER 2019-06-27 19:38 | Emergency (ER) | payer OTHER, SELFPAY ==
[2019-06-27 19:38] VITALS: PULSE 230; RESP 28; TEMP 36.6; O2SAT 90
[2019-06-27] MEDS: SODIUM CHLORIDE 0.9% 1,000 ML 1000 ML IV (19:45)
--- NOTE | 2019-06-27 19:47 | ED_ITS ---
HPI - Arrhythmia/Palpitations General Chief Complaint: Arrhythmia/Palpitations Stated Complaint: states tachycardia Time Seen by Provider: 06/27/19 19:45 Source: patient Mode of arrival: Ambulatory Limitations: no limitations History of Present Illness HPI narrative: 23-year-old female comes emergency department with complaint of tachycardia. 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 Patient states that she had ablation but has had several episodes since then. She had been on metoprolol and she is not currently on it. She is also supposed to see her investment manager to get started on sotalol because she is having recurrent episodes. She has had adenosine in the past and responded. She tried several vagal maneuvers without improvement. She states symptoms started about 7:00 a.m. to 710 this evening. She does feel little short of breath. She denies any chest pain. She does not feel lightheaded or like she is going to pass out. She denies any nausea, no vomiting no other GI or urinary symptoms. No swelling in her lower extremities. She continues to see cardiology [facility], Dr. Amador is her investment manager and Dr. Wilkins is her EP. Related Data Home Medications Medication Instructions Recorded Confirmed aspirin [Aspir-81] 81 mg PO DAILY 11/20/18 06/27/19 riboflavin (vitamin B2) 200 mg PO BID 11/20/18 06/27/19 Allergies Allergy/AdvReac Type Severity Reaction Status Date / Time amoxicillin [AMOXICILLIN] Allergy Unknown Verified 06/27/19 20:06 clarithromycin [From BIAXIN] Allergy Unknown Verified 06/27/19 20:06 fentanyl [FENTANYL] Allergy Unknown Verified 06/27/19 20:06 Review of Systems Review of Systems ROS Unobtainable: All systems reviewed & are unremarkable except as noted in HPI and below Patient History Medical History Supraventricular tachycardia (Acute) Tricuspid atresia (Acute) Surgical History S/P Fontan procedure (Acute) Status post coil embolization of cerebral aneurysm (Acute) Social History Smoking Status: Never smoker Smoking Status: Never smoker alcohol intake frequency: holidays/special occasions only Substance Use Type: does not use Exam Narrative Exam Narrative: GEN: well nourished, well appearing female, alert and oriented x 3, patient appears to be in moderate distress. HEENT: Atraumatic, pupils are equal round reactive to light, extraocular movements are intact HEART: Tachycardic but Regular rate and rhythm without murmur, clicks, rubs. No edema lower extremities. LUNGS:Lungs clear to auscultation, no wheezes, rales, crackles, chest moves symmetrically ABD: Bowel sounds normal, soft, non-tender, no guarding, rebound, rigidity, no masses noted, no hepatosplenomegaly :No CVA tenderness MSCL: Non-tender, no muscle atrophy, full range of motion, normal gait NEURO:CN 2-12 intact, sensation normal, Initial Vital Signs Initial Vital Signs: Vital Signs Temperature 97.8 F 06/27/19 19:38 Pulse Rate 230 H 06/27/19 19:38 Respiratory Rate 28 H 06/27/19 19:38 Pulse Oximetry 90 L 06/27/19 19:38 Course Orders Ordered: Discontinued Medications Adenosine (Adenocard) 6 mg IV NOW ONE Stop: 06/27/19 19:47 Last Admin: 06/27/19 19:48 Dose: 6 mg Documented by: AMBAR Sodium Chloride (Normal Saline 0.9%) 1,000 mls @ 1,000 mls/hr IV BOLUS ONE Stop: 06/27/19 20:45 Last Infusion: 06/27/19 21:18 Dose: 0 mls/hr Documented by: Admin: 06/27/19 19:45 Dose: 1,000 mls/hr Documented by: AMBAR Vital Signs Vital signs: Vital Signs - 8 hr 06/27/19 19:38 06/27/19 20:12 06/27/19 20:55 Temperature 97.8 F Pulse Rate 230 H 104 H 105 H Respiratory Rate 28 H 15 23 Blood Pressure [Left Arm] 110/77 112/70 Pulse Oximetry 90 L 95 93 MDM - Arrhythmia/Palpitations Lab Data Attestation: I reviewed the patient's lab results. Result diagrams: 06/27/19 19:40 06/27/19 19:40 Labs: Lab Results 06/27/19 06/27/19 06/27/19 Range/Units 19:40 19:40 19:40 WBC 11.0 (4.5-11.0) X10^3/uL RBC 4.93 (4.0-5.2) X10^6/uL Hgb 15.9 (12.0-16.0) g/dL Hct 45.2 (36-46) % MCV 91.8 (80-100) fL MCH 32.2 (26-34) PG MCHC 35.1 (30-36) % RDW 13.0 (11.6-14.8) % Plt Count 335 (150-400) X10^3/uL Neut % (Auto) 54.0 (50-75) % Lymph % (Auto) 34.0 (25-40) % [place] % (Auto) 8.4 (3-14) % Eos % (Auto) 2.6 (2-4) % Baso % (Auto) 1.0 (0-2) % Neut # (Auto) 6000 (7387-4357) /uL Lymph # (Auto) 3800 (2969-7065) /uL [place] # (Auto) 900 (0-900) /uL Eos # (Auto) 300 (0-450) /uL Baso # (Auto) 100 (0-100) /uL PT 12.8 H (10.1-12.7) SECONDS INR 1.1 (0.9-1.3) APTT 32 (26.4-36.2) SECONDS Sodium 139 (137-145) mmol/L Potassium 4.0 (3.4-5.1) mmol/L Chloride 111 H (98-107) mmol/L Carbon Dioxide 13 L (22-32) mmol/L BUN 14 (7-17) mg/dL Creatinine 0.80 (0.52-1.04) mg/dL Estimated GFR > 60.0 (>60) mL/min BUN/Creatinine Ratio 17.5 (6-22) Glucose 152 H (70-100) mg/dL Calcium 9.5 (8.4-10.2) mg/dL Magnesium 2.0 (1.6-2.3) mg/dL Total Creatine Kinase 74 (30-135) U/L CK-MB (CK-2) TNP CK-MB (CK-2) Rel Index TNP Troponin I < 0.012 (0.01-0.034) ng/mL TSH (0.47-4.68) uIU/mL 06/27/19 Range/Units 19:40 WBC (4.5-11.0) X10^3/uL RBC (4.0-5.2) X10^6/uL Hgb (12.0-16.0) g/dL Hct (36-46) % MCV (80-100) fL MCH (26-34) PG MCHC (30-36) % RDW (11.6-14.8) % Plt Count (150-400) X10^3/uL Neut % (Auto) (50-75) % Lymph % (Auto) (25-40) % [place] % (Auto) (3-14) % Eos % (Auto) (2-4) % Baso % (Auto) (0-2) % Neut # (Auto) (4169-1316) /uL Lymph # (Auto) (7281-3256) /uL [place] # (Auto) (0-900) /uL Eos # (Auto) (0-450) /uL Baso # (Auto) (0-100) /uL PT (10.1-12.7) SECONDS INR (0.9-1.3) APTT (26.4-36.2) SECONDS Sodium (137-145) mmol/L Potassium (3.4-5.1) mmol/L Chloride (98-107) mmol/L Carbon Dioxide (22-32) mmol/L BUN (7-17) mg/dL Creatinine (0.52-1.04) mg/dL Estimated GFR (>60) mL/min BUN/Creatinine Ratio (6-22) Glucose (70-100) mg/dL Calcium (8.4-10.2) mg/dL Magnesium (1.6-2.3) mg/dL Total Creatine Kinase (30-135) U/L CK-MB (CK-2) CK-MB (CK-2) Rel Index Troponin I (0.01-0.034) ng/mL TSH 2.82 (0.47-4.68) uIU/mL Imaging Data Chest x-ray: Radiologist's impression: [address] [id number] XRay Report Signed Patient: Winnie Carey MMR#: [id number] : 1995Acct:[id number] Age/Sex: 23 / FDate of Service: 06/27/19 Loc: ED Accession Number: [id number] Procedure: XR chest 1V Ordering Provider: Caty Monae D.O. PROCEDURE: XR CHEST 1V INDICATIONS: SUPRA VENTRICULAR TACHYCARDIA TECHNIQUE: One view of the chest was acquired. COMPARISON: [facility], , XR CHEST 1V, 11/20/2018, 11:33. FINDINGS: Surgical changes and devices: Median sternotomy wires. Lungs and pleura: Lungs are clear. No pleural effusions or pneumothorax. Mediastinum: Mediastinal contours appear normal. Heart size is normal. Bones and chest wall: Convex right thoracic spine scoliosis. No suspicious bony lesions. Overlying soft tissues appear unremarkable. IMPRESSION: No acute cardiopulmonary disease process. Dictated by: Nayely Khoury MD, PhD on 06/27/2019 at 20:43 Approved by: Nayely Khoury MD, PhD on 06/27/2019 at 20:44 ECG Data Attestation: I personally reviewed and interpreted this ECG as follows: Prior ECG tracings: available for review Interpretation: Regular Mehta rhythm tachycardia with a rate of 212, QRS of 169 and QTC of 314. Nonspecific change. Patient has prior EKG from 11/20/2018 which showed a normal sinus rhythm with depression in V2 through V4. EKG 2. Shows a sinus tachycardia rate of 104 P are 160 QRS of 91 and QTC of 398. Patient does not have elevation. Nonspecific ST change. [facility] Narrative Medical decision making narrative: Patient initially slowed with 6 mg of adenosine but did not convert. She was given 12 mg and appears to converted to a sinus rhythm although she is still slightly tachycardic at the 107 range. Patient states her normal is 100. Repeat EKG shows sinus tachycardia, patient's heart rate improved down to the 100 range which patient states she normally sits up. She states she has a little bit of resting tachycardia. Lab work does not show any major abnormalities elevated chloride CO2 is 13. Glucose is 152, troponin is negative with a normal TSH. No acute process. Patient feels back to normal. She states that she spoke with her investment manager on Sunday and was told that if she had an recurrent episode to restart her metoprolol which she has at home plan was discharged home with plan to restart her metoprolol this evening and for return if she has any recurrent symptoms. She is supposed to fo llow up with Cardiology in July to be started on sotalol., Discharge Plan Departure Patient Disposition: Home Clinical Impression: SVT (supraventricular tachycardia) Discharge Date/Time: 06/27/19 21:15 Instructions: Paroxysmal Supraventricular Tachycardia Activity Restrictions/Additional Instructions: Follow up with your investment manager, call in the morning for an appointment and to discuss your medications. Re-start your metoprolol as recommended by your investment manager. Return to the ER if you have any recurring symptoms, palpitations, chest pain, shortness of breath, lightheadedness or passing-out, persistent vomiting or other new or concerning symptoms. Prescriptions: No Action aspirin [Aspir-81] 81 mg Tablet,Delayed Release (Dr/Ec) 81 mg PO DAILY RF: 0 riboflavin (vitamin B2) 200 mg PO BID RF: 0 Referrals: Caty Kang DO [Primary Care Provider] -
[2019-06-27] MEDS: ADENOSINE 6 MG/2 ML VIAL IV (19:48)
[2019-06-27] MEDS: ADENOSINE 6 MG/2 ML VIAL 24 MG IV (19:54)
[2019-06-27 20:06] LABS: Add Manual Diff / Slide Review NO; Basophils Absolute Auto 100 /uL (0-100); Eosinophils Absolute Auto 300 /uL (0-450); Eosinophils Percent Auto 2.6 % (2-4); Hematocrit 45.2 % (36-46); Hemoglobin 15.9 g/dL (12.0-16.0); Lymphocytes Absolute Auto 3800 /uL (1100-4500); Mean Corpuscular HGB Conc 35.1 % (30-36); Mean Corpuscular Hemoglobin 32.2 PG (26-34); Mean Corpuscular Volume 91.8 fL (80-100); Monocytes Absolute Auto 900 /uL (0-900); Monocytes Percent Auto 8.4 % (3-14); Neutrophils Absolute Auto 6000 /uL (1500-7000); Platelet Count 335 X10^3/uL (150-400); Red Blood Cell Count 4.93 X10^6/uL (4.0-5.2)
[2019-06-27 20:12] VITALS: BP 110/77; PULSE 104; RESP 15; O2SAT 95
[2019-06-27 20:17] LABS: INR 1.1 (0.9-1.3); Prothrombin Time 12.8 SECONDS (10.1-12.7)
[2019-06-27 20:19] LABS: BUN Creatinine Ratio 17.5 (6-22); Blood Urea Nitrogen 14 mg/dL (7-17); Calcium 9.5 mg/dL (8.4-10.2); Carbon Dioxide 13 mmol/L (22-32); Chloride 111 mmol/L (98-107); Creatine Kinase 74 U/L (30-135); Estimated Glomerular Filt Rate > 60.0 mL/min (>60); Glucose 152 mg/dL (70-100); HEMOLYSIS 36 (0-50); PTT Partial Thromboplastin Tim 32 SECONDS (26.4-36.2); Sodium 139 mmol/L (137-145)
[2019-06-27 20:31] LABS: Troponin I < 0.012 ng/mL (0.01-0.034)
[2019-06-27 20:50] LABS: Thyroid Stimulating Hormone 2.82 uIU/mL (0.47-4.68)
[2019-06-27 20:55] VITALS: BP 112/70; PULSE 105; RESP 23; O2SAT 93
[2019-06-27 21:09] VITALS: BP 113/69; PULSE 107; RESP 18; O2SAT 98
== END 2019-06-27 21:15 | disposition home or self-care (01) ==
PROVIDERS: Emergency Provider Emergency Medicine; Family Provider Family Medicine; PCP Family Medicine
DX: I47.1 Supraventricular tachycardia (principal)
CPT/HCPCS: 36415; 71045; 80048; 82550; 83735; 84443; 84484; 85025; 85610; 85730; 93005; 96361; 96374; 99283; 99285; J0153